=== PATIENT | male | born 1965 | race Two or more races ===

== ENCOUNTER 2017-01-06 07:31 | Emergency (ER) | payer MEDICAID ==
[~2017-01-06] VITALS: Ht 182.9 cm; Wt 87.1 kg
[~2017-01-06 07:31] MED LIST: RABE20TA5
[2017-01-06 09:22] VITALS: BP 158/94
== END 2017-01-06 10:08 | disposition home or self-care (01) ==
LOC: EDBD 07:31 → ER 07:40
DX: F41.9 Anxiety disorder, unspecified (principal); F20.9 Schizophrenia, unspecified; F17.210 Nicotine dependence, cigarettes, uncomplicated

== ENCOUNTER 2018-10-17 16:02 | Emergency (ER) | payer MEDICAID ==
[~2018-10-17] VITALS: Ht 182.9 cm; Wt 44.1 kg
[2018-10-17 16:10] VITALS: BP 141/80
== END 2018-10-17 18:34 | disposition left against medical advice (07) ==
LOC: ER 16:02 → EDBD 16:02 → ER 18:34
DX: R44.0 Auditory hallucinations (principal); Z53.21 Procedure and treatment not carried out due to patient leaving prior to being seen by health care provider

== ENCOUNTER 2024-11-13 16:03 | Inpatient (IN) | payer MEDICAID ==
[~2024-11-13] VITALS: Ht 182.9 cm; Wt 85.7 kg
[~2024-11-13 16:03] MED LIST changes: +RABE20TA19; -RABE20TA5
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
[2024-11-13 16:26] VITALS: PULSE 130; RESP 16; O2SAT 92
--- NOTE | 2024-11-13 16:37 | DVH ---
CHEST RADIOGRAPH Indication: sob Technique: Single frontal view of the chest was obtained Comparison: None FINDINGS: Lines and Tubes: Surgical clips in the left neck. Lungs: No focal consolidation. Pleura: No effusion. No pneumothorax. Cardiomediastinal contours: Unremarkable Bones: No acute osseous abnormality. IMPRESSION: 1. No acute cardiopulmonary disease.
[2024-11-13 16:56] LABS: Basophils # (auto) 0 10 ^3/uL (0-0.2); Basophils % (auto) 0.6 % (0.0-2.0); Eosinophils # (auto) 0 10 ^3/uL (0-0.8); Eosinophils % (auto) 0.1 % (0.0-7.0); Hematocrit 43.2 % (41.0-53.0); Hemoglobin 15.2 g/dL (13.5-17.5); Lymphocytes # (auto) 0.7 10 ^3/uL (0.4-5.4); Lymphocytes % (auto) 10.8 % (10.0-50.0); Mean Corpuscular Hemoglobin 33.2 pg (28.0-32.0); Mean Corpuscular Hgb Conc. 35.2 g/dL (32.0-36.0); Mean Corpuscular Volume 94.5 fL (80.0-100.0); Monocytes # (auto) 0.9 10 ^3/uL (0-1.3); Monocytes % (auto) 13.5 % (0.0-12.0); Nucleated Red Blood Cells % 0.2 %; Platelet Count (auto) 267 10^3/uL (140-450); Red Blood Cells 4.58 10^6/uL (4.5-5.90); Red Cell Distribution Width 13.9 % (11.8-14.3); White Blood Cell 6.7 10^3/uL (4.4-10.8)
[2024-11-13] MEDS: SODIUM CHLORIDE 0.9% 1,000 ML IV ONE ×3 (17:02→20:13)
[2024-11-13 17:26] LABS: Chloride 102 mmol/L (98-107); Potassium 3.7 mmol/L (3.5-5.1)
[2024-11-13 17:27] LABS: Anion Gap 8 (5-15); Calcium 9.6 mg/dL (8.7-10.4); Carbon Dioxide 23 mmol/L (20-31)
[2024-11-13] MEDS ORDERED: HYDROmorphone HCL 2 MG/ML VL/or syr IV ONE (17:30)
[2024-11-13 17:32] LABS: BUN/Creatinine Ratio 14.8 (10.0-20.0); Blood Urea Nitrogen 12 mg/dL (9-23)
[2024-11-13 17:41] LABS: Glucose 106 mg/dL (74-106); Sodium 133 mmol/L (136-145)
[2024-11-13] MEDS ORDERED: MORPHINE SULFATE INJ 2 MG/ml SYRG IV PRN (18:45)
[2024-11-13] MEDS ORDERED: NITROGLYCERIN 0.4 MG SL TAB SL PRN (18:45)
--- NOTE | 2024-11-13 18:57 | ECG ---
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
--- NOTE | 2024-11-13 19:49 | DVH ---
CT CHEST, ABDOMEN AND PELVIS WITHOUT CONTRAST HISTORY: [facility] COMPARISON: None TECHNIQUE: Helical axial CT images of the chest, abdomen and pelvis were obtained without intravenous contrast. Multiplanar reformats. One or more of the following radiation dose reduction techniques we re used for this examination: automated exposure control, adjustment of the mA and/or kV according to patient size, use of iterative reconstruction technique. Dose: CTDI 17.55. DLP: 1272.11 FINDINGS: Chest: The thyroid gland is not well-visualized. Heart size is within normal limits. No evidence of aortic aneurysm. No significant mediastinal lymphadenopathy. No pneumothorax, pleural effusion or focal airspace consolidation. Bilateral dependent atelectasis. Surgical clips are noted of the left lower neck region. There is soft tissue edema of the left inside sales lead olateral thoracic upper abdominal wall. 1.3 cm suggest a sebaceous cyst within the right ventral abdo linda subcutaneous fat abutting the skin. Acute/ subacute fracture of right lateral 8, 9 and 10th rib s. Minimal loss of superior vertebral body height of T4 and T6 of unknown chronicity. Abdomen and pelvis: 2.1 cm right hepatic lobe cyst. Additional subcentimeter right hepatic lobe hypodense lesions are no radha that are too small to characterize. Spleen, and pancreas unremarkable. Cholelithiasis with no CT evidence of acute cholecystitis. 1.7 cm left with 1.6 cm right adrenal nodules measuring up to -4 Ho unsfield units on the left in 1 Hounsfield unit on the right which may represent adenomas. There is a dditional 2.2 x 3.3 cm lobulated hypodense lesion abutting the left adrenal gland measuring up to 1 H ounsfield units which may represent an adenoma of the adrenal gland versus an adjacent cystic structu re. Nonobstructing bilateral renal calculi. No hydronephrosis bilaterally. There is mild prominence of th e left distal ureter with [id number] prominence of the right distal ureter. There is a layering nonobstructing 6 mm calculus within the distended portion of the right distal ureter. Urinary bladde r is unremarkable. Prostate is unremarkable. Small hiatal hernia. Mild gastric wall thickening. Small bowel loops unremarkable. Appendix is unrema rkable. Moderate amount of fecal material within the colon. No evidence of intraperitoneal free air or free fluid. No evidence of aortic aneurysm. [id number] atherosclerotic calcification of the distal aorta an d bilateral iliacs. No significant lymphadenopathy. Minimal loss of superior vertebral body height of L2 of unknown chronicity. Sclerotic foci of the rig ht sacral bone and bilateral proximal femur which may represent bone islands with blastic lesions not excluded. Severe degenerative changes of the left hip with moderate to severe degenerative changes o f the right hip. IMPRESSION: Acute/ subacute fractures of right lateral ribs 8-10 Minimal loss of superior vertebral body height of T4, T6 and L2 of unknown chronicity. Mild soft tissue edema of the left posterolateral lower thoracic wall and upper abdomen. Mild gastric wall thickening which may be due to inadequate distention with gastritis not excluded. Moderate amount of fecal material within the colon. Small hiatal hernia. Nonobstructing bilateral renal calculi with mild prominence of the left distal ureter and mild-to-mod erate prominence of the right distal ureter. Nonobstructing layering 6 mm calculus within the distend ed portion of the right distal ureter. Cholelithiasis without evidence of acute cholecystitis. Bilateral adrenal adenomas with the additional 2.2 x 3.3 cm lobulated hypodense lesion abutting the l eft adrenal gland measuring up to 1 Hounsfield units which may represent an adenoma of the adrenal gl and versus an adjacent cystic structure. Additional findings as above.
[2024-11-13 20:13] LABS: Magnesium 1.8 mg/dL (1.6-2.6)
[2024-11-13] MEDS: AZITHROMYCIN 500MG/ 250ML 250 ML IV ONE (20:13)
[2024-11-13] MEDS: cefTRIAXone 1GM/50ML D5W 50 ML IV ONE (20:13)
[2024-11-13] MEDS: risperiDONE 1 MG TAB PO ONE (20:13)
[2024-11-13 20:14] LABS: Phosphorus 2.9 mg/dL (2.4-5.1)
[2024-11-13 20:42] LABS: COVID19 ANTIGEN SOFIA FIA NEGATIVE (NEGATIVE)
[2024-11-13 20:49] LABS: Rapid Influenza B Negative (Negative)
[2024-11-13 20:51] LABS: Rapid Influenza A Positive (Negative)
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
[2024-11-13 22:35] VITALS: PULSE 79; RESP 17; O2SAT 94
[2024-11-13 23:13] VITALS: BP 110/70; PULSE 110; RESP 17; TEMP 98.6; O2SAT 94
[2024-11-13] MEDS ORDERED: RISP2TAB62 PO (23:29)
[2024-11-13] MEDS ORDERED: ZOLP10TA PO (23:38)
[2024-11-14] VITALS (7 sets, daily range): BP systolic 95–132; BP diastolic 60–73; PULSE 79–110; RESP 16–20; TEMP 98.2–99.1; O2SAT 92–97
[2024-11-14] MEDS ORDERED: HYDROcodone-ACET 10/325MG TAB PO PRN (02:00)
--- NOTE | 2024-11-14 05:48 | DVH ---
CHEST RADIOGRAPH Indication: pneumonia Technique: Single frontal view of the chest was obtained Comparison: XY CHEST PORTABLE on DOS: 11/13/24 FINDINGS: Lines and Tubes: None Lungs: No focal consolidation. Pleura: No effusion. No pneumothorax. Cardiomediastinal contours: Unremarkable Bones: No acute osseous abnormality. Right humerus ORIF. IMPRESSION: 1. No acute cardiopulmonary disease.
[2024-11-14 06:35] LABS: Basophils # (auto) 0 10 ^3/uL (0-0.2); Basophils % (auto) 0.4 % (0.0-2.0); Eosinophils # (auto) 0 10 ^3/uL (0-0.8); Eosinophils % (auto) 0.4 % (0.0-7.0); Hematocrit 38.5 % (41.0-53.0); Hemoglobin 13.6 g/dL (13.5-17.5); Lymphocytes # (auto) 1.2 10 ^3/uL (0.4-5.4); Lymphocytes % (auto) 22.1 % (10.0-50.0); Mean Corpuscular Hemoglobin 33.4 pg (28.0-32.0); Mean Corpuscular Hgb Conc. 35.2 g/dL (32.0-36.0); Mean Corpuscular Volume 94.8 fL (80.0-100.0); Monocytes # (auto) 0.8 10 ^3/uL (0-1.3); Monocytes % (auto) 14.8 % (0.0-12.0); Neutrophils # (auto) 3.5 10 ^3/uL (1.6-8.6); Neutrophils % (auto) 62.3 % (37.0-80.0); Nucleated Red Blood Cells % 0.1 %; Platelet Count (auto) 230 10^3/uL (140-450); Red Blood Cells 4.06 10^6/uL (4.5-5.90); White Blood Cell 5.6 10^3/uL (4.4-10.8)
[2024-11-14 06:43] LABS: Alanine Aminotransferase 28 U/L (7-40); Albumin 3.7 g/dL (3.2-4.8); Alkaline Phosphatase 91 U/L (46-116); Anion Gap 8 (5-15); Aspartate Aminotransferase 27 U/L (13-40); BUN/Creatinine Ratio 17.1 (10.0-20.0); Bilirubin, Total 0.4 mg/dL (0.2-1.0); Blood Urea Nitrogen 13 mg/dL (9-23); Calcium 8.8 mg/dL (8.7-10.4); Carbon Dioxide 22 mmol/L (20-31); Chloride 107 mmol/L (98-107); Glucose 101 mg/dL (74-106); Potassium 3.6 mmol/L (3.5-5.1); Sodium 137 mmol/L (136-145); Total Protein 6.1 g/dL (5.7-8.2)
[2024-11-14 09:06] LABS: Free T3 2.18 pg/mL (2.3-4.2); Free T4 (Free Thyroxine) 1.06 ng/dL (0.89-1.76)
[2024-11-14] MEDS ORDERED: MULTIPLE VITAMIN TAB PO SCH (10:00)
[2024-11-14] MEDS: cefTRIAXone 1GM/50ML D5W 50 ML IV SCH (10:53)
[2024-11-14] MEDS: AZITHROMYCIN 250 MG TAB PO SCH (10:57)
[2024-11-14] MEDS: risperiDONE 1 MG TAB PO SCH (10:57)
[2024-11-14] MEDS: ERGOCALCIFEROL 50,000 UNIT(1.25MG) CAP PO SCH (10:57)
[2024-11-14] MEDS: OSELTAMIVIR 75 MG CAP PO SCH (10:58)
[2024-11-14] MEDS: CYANOCOBALAMIN (B-12) 1000 MCG/1 ML VIAL IM ONE (10:58)
[2024-11-14 12:22] LABS: Urine Bacteria None Seen /hpf (None Seen)
[2024-11-14 12:45] LABS: Cannabinoid Screen, Urine Pos (NEGATIVE)
[2024-11-14 12:48] LABS: Urine Blood Negative /uL (Negative); Urine Clarity Clear (Clear); Urine Color Light-Yellow (Yellow); Urine Protein, UAD Negative (Negative); Urine Specific Gravity 1.014 (1.001-1.035); Urine Squamous Epithelial Cell None Seen /hpf (<5); Urine Urobilinogen Normal (Negative); Urine WBC 1 /hpf (0 - 3)
[2024-11-14 12:49] LABS: Amphetamine Screen, Urine Pos (NEGATIVE); Barbiturate Scree,Urine Neg (NEGATIVE); Benzodiazephine Screen, Urine Neg (NEGATIVE); Cocaine Screen, Urine Neg (NEGATIVE); Opiate Scree,Urine Neg (NEGATIVE); Phencyclidine Screen, Urine Neg (NEGATIVE)
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
--- NOTE | 2024-11-14 17:43 | DVHSR ---
APPROVED REPORT EXAM: Two-dimensional and M-mode echocardiogram with Doppler and color Doppler. Blood Pressure: 132/61 mmHg INDICATION rule out structural heart disease RISK FACTORS Height: 6', Weight: 188 DIMENSIONS LVDd4.2 (3.8-5.7cm)LA (2D)3.6 (1.9-4.0cm)Aortic Root (2.0-3.7cm) LVDs3.2 (2.5-4.0cm)LA (MM) (1.9-4.0cm)Aortic Cusp Exc (1.5-2.0cm) EF (%) 50.0 (55-70%)Rt. Atrium3.8 (1.9-4.0cm)Asc. Aorta cm Mitral Valve MitralMitral Stenosis E wave0.49m/sMV Mean GR.mmHg A wave0.73m/sMV Peak GR.mmHg E/A ratio0.72D MVAcm2 DECEL [id number] 1/2 Timems Aortic Valve Aortic ValveAortic Stenosis V11.14m/Heather Mean GR.3mmHg V21.13m/Heather Peak GR.5mmHg Other Information Quality : Technically LimitedRhythm : Technically limited study due to body habitus. Conclusion Normal left ventricular size and dimension. Normal left ventricular systolic function estimated ejec tion fraction 50%. There is a grade 1 diastolic dysfunction. Normal right ventricular size and dimension. Normal right ventricular systolic function. Normal biatrial size and dimension. Normal aortic valve structure and function. Normal mitral valve structure and function. Normal tricuspid valve structure and function. The pulmonary valve is grossly normal. No pericardial effusion.
[2024-11-14] MEDS: FOLIC ACID 1 MG, MULTIPLE VITAMIN 10 ML, MAGNESIUM SULF SDV 50% 8 MEQ, THIAMINE INJ 100... INJ SCH (18:20)
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
[2024-11-15 01:03] VITALS: BP 111/48; PULSE 76; RESP 16; TEMP 98.2; O2SAT 100
[2024-11-15 05:07] VITALS: BP 88/54; PULSE 75; RESP 16; TEMP 98.1; O2SAT 95
[2024-11-15] MEDS: LEVOTHYROXINE SODIUM 112 MCG TAB PO SCH (05:39)
[2024-11-15] MEDS: LEVOTHYROXINE SODIUM 25 MCG TAB PO SCH (05:39)
[2024-11-15 05:44] VITALS: BP 114/65; PULSE 83; RESP 16
[2024-11-15 08:05] VITALS: RESP 17; O2SAT 97
[2024-11-15 08:41] LABS: Basophils # (auto) 0 10 ^3/uL (0-0.2); Basophils % (auto) 0.5 % (0.0-2.0); Eosinophils # (auto) 0 10 ^3/uL (0-0.8); Eosinophils % (auto) 1.2 % (0.0-7.0); Hematocrit 39.8 % (41.0-53.0); Hemoglobin 13.4 g/dL (13.5-17.5); Lymphocytes % (auto) 29.1 % (10.0-50.0); Mean Corpuscular Hemoglobin 32.9 pg (28.0-32.0); Mean Corpuscular Hgb Conc. 33.6 g/dL (32.0-36.0); Mean Corpuscular Volume 97.9 fL (80.0-100.0); Monocytes # (auto) 0.5 10 ^3/uL (0-1.3); Monocytes % (auto) 15.1 % (0.0-12.0); Neutrophils # (auto) 1.9 10 ^3/uL (1.6-8.6); Neutrophils % (auto) 54.1 % (37.0-80.0); Nucleated Red Blood Cells % 0.5 %; Platelet Count (auto) 234 10^3/uL (140-450); Red Blood Cells 4.07 10^6/uL (4.5-5.90); White Blood Cell 3.6 10^3/uL (4.4-10.8)
[2024-11-15 09:06] LABS: Alanine Aminotransferase 30 U/L (7-40); Albumin 3.7 g/dL (3.2-4.8); Alkaline Phosphatase 87 U/L (46-116); Anion Gap 6 (5-15); Aspartate Aminotransferase 30 U/L (13-40); BUN/Creatinine Ratio 10.9 (10.0-20.0); Carbon Dioxide 23 mmol/L (20-31); Glucose 97 mg/dL (74-106); Potassium 3.9 mmol/L (3.5-5.1); Sodium 139 mmol/L (136-145)
[2024-11-15 09:07] LABS: Bilirubin, Total 0.4 mg/dL (0.2-1.0); Blood Urea Nitrogen 7 mg/dL (9-23); Chloride 110 mmol/L (98-107); Total Protein 6.2 g/dL (5.7-8.2)
[2024-11-15 09:10] VITALS: BP 114/68; PULSE 81; RESP 19; TEMP 98; O2SAT 93
[2024-11-15] MEDS ORDERED: OSEL75CA5 PO (10:40)
[2024-11-15] MEDS ORDERED: LEVO750T40 PO (10:40)
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
== END 2024-11-15 11:08 | disposition home or self-care (01) | DRG 720 ==
LOC: ER 16:03 → EDBD 16:03 → OVERFLOW 18:35 → EAST 18:56 → CENTRAL 11-14 15:25
PROVIDERS: ADMIT Student in an Organized Health Care Education/Training Program; ATTEND Student in an Organized Health Care Education/Training Program
DX: A41.50 Gram-negative sepsis, unspecified (principal); J15.69 Pneumonia due to other Gram-negative bacteria; J10.08 Influenza due to other identified influenza virus with other specified pneumonia; J15.9 Unspecified bacterial pneumonia; J12.9 Viral pneumonia, unspecified; E87.1 Hypo-osmolality and hyponatremia; S22.41XA Multiple fractures of ribs, right side, initial encounter for closed fracture; Z20.822 Contact with and (suspected) exposure to COVID-19; N20.0 Calculus of kidney; D35.01 Benign neoplasm of right adrenal gland; K80.20 Calculus of gallbladder without cholecystitis without obstruction; F20.9 Schizophrenia, unspecified; F17.210 Nicotine dependence, cigarettes, uncomplicated; F31.9 Bipolar disorder, unspecified; S06.0X0A Concussion without loss of consciousness, initial encounter; K44.9 Diaphragmatic hernia without obstruction or gangrene; E53.8 Deficiency of other specified B group vitamins; E55.9 Vitamin D deficiency, unspecified; Z85.46 Personal history of malignant neoplasm of prostate; V89.2XXA Person injured in unspecified motor-vehicle accident, traffic, initial encounter; Y93.89 Activity, other specified; Y92.89 Other specified places as the place of occurrence of the external cause; Y99.8 Other external cause status
CPT/HCPCS: 36415; 36600; 70450; 71045; 71250; 72040; 74176; 80048; 80053; 80061; 80307; 80320; 81001; 82306; 82607; 82805; 83605; 83735; 83880; 84100; 84439; 84443; 84481; 84484; 85025; 85379; 87040; 87081; 87426; 87804; 93005; 93306; 96361; 96365; 96368; G0378

== ENCOUNTER 2025-05-09 13:06 | Emergency (ER) | payer MEDICAID ==
[~2025-05-09 13:06] MED LIST changes: +LEVO750T40 PO; +OSEL75CA5 PO; +RISP2TAB62 PO; +ZOLP10TA PO
== END 2025-05-09 13:30 | disposition left against medical advice (07) ==
LOC: ER 13:06
DX: R51.9 Headache, unspecified (principal); Z53.21 Procedure and treatment not carried out due to patient leaving prior to being seen by health care provider